=== PATIENT | female | born 1970 | race Caucasian/White ===

== ENCOUNTER 2016-10-10 05:07 | Day surgery (SDC) | payer BC ==
[~2016-10-10] VITALS: Ht 160 cm; Wt 105.7 kg
[~2016-10-10 05:07] MED LIST: CHROMIUM PICO200 MC1 PO; FLUTICASONE PRO16 GM NASAL; IBUPROFEN600 MG PO; JOINT VITAMIN PO; MAGNESIUM GLUC500 M1 PO; POTASSIUM99 M1 PO; RELAFEN750 MG PO; STOOL SOFTENER100 M1 PO
[2016-10-10 06:18] VITALS: BP 113/71; Ht 160 cm; Wt 105.7 kg
[2016-10-10 06:27] LABS: HEMATOCRIT 40.3 % (36.0-48.0); MCH 27.8 pg (26.0-34.0); MCHC 32.3 g/dL (31.0-37.0); MCV 86.1 fL (80.0-100.0); MEAN PLATELET VOLUME 9.6 fL (7.4-10.4); RBC 4.68 10x6/uL (4.00-5.40); RDW 13.3 % (11.5-14.5); WBC 8.5 10x3/uL (4.8-10.8)
[2016-10-10 06:52] LABS: HCG URINE NEGATIVE (NEGATIVE)
--- NOTE | 2016-10-10 08:27 | NUR ---
3297 IRCARDO HURST TO ROOM
[2016-10-10] MEDS ORDERED: HYDROCODONE-APA1 TAB PO (08:49)
--- NOTE | 2016-10-10 10:26 | NUR ---
IV DC WITH CATHER TIP INTACT
--- NOTE | 2016-11-01 15:24 | OP ---
PATIENT NAME: DALILA SHEA MEDICAL RECORD: [id number] :68 LOCATION:D.OPS ADMISSION DATE: SURGEON: DIANA CHRISTENSEN MD DATE OF OPERATION: 10/10/2016 PREOPERATIVE DIAGNOSIS: Medial meniscus tear of the right knee. POSTOPERATIVE DIAGNOSIS: Medial meniscus tear of the right knee. PROCEDURE: Arthroscopic partial medial meniscectomy of the right knee. SURGEON: Diana Christensen MD ANESTHESIA: General. INTRAOPERATIVE COMPLICATIONS: None. SUMMARY OF PATHOLOGIC FINDINGS: Consistent with the preoperative diagnosis. The patient was found to have a torn meniscus of the right knee medial aspect. OPERATIVE SUMMARY IN DETAIL: After obtaining the appropriate orthopedic surgery consent as well as anesthetic consultation, evaluation and clearance, the patient was brought to the operating room and placed on the operating table in supine position. After adequate general laryngeal mask was administered, tourniquet was placed about the proximal aspect of the right lower extremity. Right lower extremity was then prepped and draped in routine sterile fashion. The leg was elevated and exsanguinated, tourniquet inflated to 350 mmHg. Routine inferolateral portal was established followed by superomedial portal and inferomedial portal. Diagnostic arthroscopy did reveal the above findings. Attention was turned to the medial meniscus. Combination of 3.5 full radius resector as well as an arthroscopic meniscotome, we utilized to debride the medial meniscus back to stable meniscal elements. Having completed this, the lateral part of the knee as well as the patellofemoral joint were in relatively overall good condition. The arthroscopy was then terminated. Arthroscopic portals were closed with 4-0 Prolene in routine standard interrupted fashion. Sterile dressings were applied. Tourniquet was deflated. The patient was awakened and taken to recovery room in stable condition. All final needle and sponge counts were correct. TRANSINT:[id number] Voice Confirmation ID: [id number] DOCUMENT ID: [id number] FERMIN HURST, DIANA SONG at 1524 CC: [id number] DICTATION DATE: 10/31/16 1355 [employer] PROFESSIONAL: 11/01/16 0128 [facility] 10/10/16 [place] [address]
== END 2016-10-10 10:40 | disposition home or self-care (01) ==
LOC: D.OPS 05:07 → D.PAN 07:30 → D.OPS 07:30
PROVIDERS: Anesthesiology; Orthopaedic Surgery
DX: S83.241A Other tear of medial meniscus, current injury, right knee, initial encounter (principal); K44.9 Diaphragmatic hernia without obstruction or gangrene; K21.9 Gastro-esophageal reflux disease without esophagitis; M17.0 Bilateral primary osteoarthritis of knee